=== PATIENT | female | born 1960 | race Caucasian/White ===

== ENCOUNTER → 2017-12-06 16:59 | Outpatient (CLI) | payer OTHER, SELFPAY ==
--- NOTE | 2017-12-06 17:30 | MRI_ITS ---
STUDY: MRI LEFT ANKLE WITHOUT CONTRAST REASON FOR EXAM: Female, 57 years old. Left heel pain x2 months. TECHNIQUE: Standardized fat and water weighted pulse sequences were obtained in all 3 orthogonal planes. COMPARISON: X-ray July 15, 2016. FINDINGS: There are 2 screws traversing healed fracture of the calcaneus. Normal subcutis adipose space. There is thickening of the posterior tibialis tendon consistent with a tendinosis, and partial split tear series 3 images 11/13 through . There is postoperative change adjacent to the insertion on the navicular. Normal flexor digitorum longus tendon. Normal flexor hallucis longus tendon. Normal peroneus longus and brevis tendons. Normal tibialis anterior tendon. Normal extensor hallucis longus tendon. Normal extensor digitorum longus tendons. Normal Achilles tendon and teno-osseous insertion. Normal plantar fascia. There is a plantar calcaneal spur, but without cancellous marrow edema. Normal intrinsic muscles of the rearfoot. Normal distal tibiofibular syndesmotic ligamentous complex. There is scarring with thinning of the anterior talofibular ligament consistent with a remote sprain. There is ossific density suggesting chronic impingement. Normal subtalar ligaments and sinus tarsi. Normal deltoid ligamentous complexes. Normal plantar calcaneonavicular (spring) ligament. Mild spurring at the tibiotalar articulation. Normal talar dome. Normal subtalar articulations. Normal talonavicular articulation. Mild arthrosis of the calcaneocuboid articulation. Normal navicular-cuneiform articulations. There is muscular edema of the abductor hallucis and flexor digitorum brevis and abductor digiti minimi. MRI/Lower Ext Joint Only (Routine) IMPRESSION: Healed fracture of the calcaneus status post ORIF. Plantar heel spur. Muscular edema on the plantar aspect. Partial split tear of the posterior tibial tendon. Electronically Signed: Jesus Hurtado MD at 23:59 EDT , Service support ,
== END ==
PROVIDERS: Visit Provider Podiatrist
DX: G57.52 Tarsal tunnel syndrome, left lower limb (principal); M25.572 Pain in left ankle and joints of left foot
CPT/HCPCS: 73721